=== PATIENT | female | born 1950 | race Caucasian/White ===

== ENCOUNTER → 2019-01-12 | Outpatient (CLI) | payer MEDICARE ==
[2019-01-12 15:23] LABS: HCT 42.9 % (34.0-46.0); MCH 30.4 pg (25.0-35.0); MCHC 32.7 g/dL (31.0-37.0); MCV 93.1 fL (80.0-100.0); Mean Platelet Volume 5.8; Platelet Count 263 k/uL (150-450); RBC 4.61 m/uL (3.80-5.40); RDW 12.8 % (11.5-15.5); WBC 6.7 k/uL (3.8-10.6)
[2019-01-12 15:34] LABS: Potassium 4.6 mmol/L (3.5-5.1)
== END | disposition home or self-care (01) ==
LOC: LABPAT 14:32
PROVIDERS: ATTEND Internal Medicine Interventional Cardiology
DX: Z01.812 Encounter for preprocedural laboratory examination (principal); I25.10 Atherosclerotic heart disease of native coronary artery without angina pectoris
CPT/HCPCS: 36415; 80051; 82565; 84520; 85027

== ENCOUNTER → 2019-01-14 | Day surgery (SDC) | payer MEDICARE ==
[2019-01-13 11:34] VITALS: BMI 39.8
[~2019-01-14] MED LIST: ADENOSINE 90 MG in SODIUM CHLORIDE 0.9% 60 ML IVP ONE; ALPRAZolam 0.25 MG TAB PO PRN; ALPRAZolam 0.5 MG TAB PO PRN; ASPIRIN 325 MG TAB PO STA; ASPIRIN 81 MG PO SCH; CARVEDILOL 12.5 MG TAB PO SCH; ESCITALOPRAM 10 MG TAB PO SCH; HEPARIN SODIUM 1,000 UN/ML (10ML VL) IV ONE; HEPARIN SODIUM 1,000 UN/ML (10ML VL) ONE; INSULIN DETEMIR (LEVEMIR) 100 UNIT/ML SYR SQ SCH; IOPAMIDOL-370 125ML BTL INJ ONE; LIDOCAINE 1% INJ 10MG/ML (20 ML MDV) ONE; LIDOCAINE 1% INJ 10MG/ML (20 ML MDV) SQ ONE; LOSARTAN 25 MG TAB PO SCH; NITROGLYCERIN 1000MCG/10ML SYRINGE INTRACORON ONE; NITROGLYCERIN SL TABS 0.4 MG TAB SUBLINGUAL PRN; PIOGLITAZONE 15 MG TAB PO SCH; ROSUVASTATIN CALCIUM 10 MG PO SCH; RX INFO: IV CONTRAST WAS GIVEN 1 EACH MISC MISCELLANE PRN; SODIUM CHLORIDE 0.9% 1,000 ML IV SCH; SODIUM CHLORIDE 0.9% 1,000 ML in EMPTY BAG 1 BAG IV ONE; VERAPAMIL 2.5 MG/ML 2 ML AMP ONE; VERAPAMIL SYRINGE (5 MG/10 ML) INTRAARTER ONE; fentaNYL (PF) 50 MCG/ML 2 ML AMP IV ONE; fentaNYL (PF) 50 MCG/ML 2 ML AMP ONE
[2019-01-14 10:30] LABS: Glucose,Whole Blood 140 mg/dL (75-99)
[2019-01-14 10:31] VITALS: RESP 18; TEMP 99.5
[2019-01-14 14:11] LABS: Glucose,Whole Blood 142 mg/dL (75-99)
--- NOTE | 2019-01-14 14:51 | CC ---
CARDIAC CATHETERIZATION REPORT Mrs. Richards is a 68-year-old female with known history of hypertension, hyperlipidemia, diabetes mellitus, and a history of coronary artery disease who presented with symptoms of progressive dyspnea and fatigue and back and chest discomfort reminding her of the symptoms she had at the time of her intervention. In view of that, recommendation made regarding cardiac catheterization. The procedures, risks, and complication were discussed with the patient who is in full understanding and agreement. PROCEDURE: Patient was brought to the cytogenetics laboratory manager in the fasting semi-sedated state after receiving fentanyl and Benadryl and achieving moderate conscious sedated state. Using Xylocaine anesthesia and Seldinger technique, a 6-[place] sheath was introduced in the right radial artery. Selective right and left coronary angiography performed using 5-[place]ican, 3.5 bend right and left Leonidas catheter. Multiple views of the coronary artery including hemiaxial views obtained. Following that, a 6-[place] FR4 guiding catheter introduced in the system and fractional flow reserve was calculated after advancing a Doppler flow wire across the lesion in the right coronary artery and having infusion of intravenous adenosine per protocol. Following that, a 5-[place] tight pigtail catheter was introduced into the left ventricle and pressures were calculated. Following that, catheter and sheath were removed. Hemostasis was obtained with deployment of a TR band. There was no immediate complication. Patient was returned to her room in stable condition. Of note, the patient had received intra-arterial verapamil as well as 5000 units of intravenous heparin. FINDINGS: 1. LEFT MAIN: This is a large-sized vessel, bifurcating into left circumflex, left anterior descending artery. Left main coronary artery has no evidence of high- grade stenosis. 2. LEFT ANTERIOR DESCENDING ARTERY: This is a large-sized vessel, reaching toward the apex with a wraparound apex segment giving rise to a large diagonal branch proximally. The left anterior descending artery stented segment is patent with no evidence of stenosis. 3. LEFT CIRCUMFLEX: This is a nondominant vessel giving rise to a large obtuse marginal branch. The left circumflex stented segment is patent with no evidence of significant restenosis. 4. RIGHT CORONARY ARTERY: This is a large dominant vessel, bifurcating distally into PDA and posterolateral segment and branches, calcified in mid segment. In the mid segment at the takeoff of the acute marginal branch, there is a tubular lesion of 50% to 60%. The rest of the vessel has no high-grade stenosis. 5. FRACTIONAL FLOW RESERVE: Fractional flow reserve of the right coronary was measured at 81% and IFR was above 90%. 6. LEFT VENTRICULAR END-DIASTOLIC PRESSURE: Left ventricular end-diastolic pressure was 16-20 mmHg. CONCLUSION: 1. Patent stent of the LAD and the left circumflex. 2. Moderate lesion in the mid right coronary artery with non-hemodynamic significant lesion. RECOMMENDATION: In view of finding anatomy, I recommend continue medical therapy with aggressive coronary risk modifications being initiated. Those findings and recommendation were discussed with the patient and her family and they are in full understanding and agreement. Duration of procedure is 31 minutes. MMODL / IJN: [id number] /
--- NOTE | 2019-01-14 14:54 | LTR ---
DATE OF SERVICE: 01/14/2019 RE: SusieJanki Dear Dr. Victoria: I had the pleasure to perform cardiac catheterization and fractional flow reserve measurement on Mrs Richards at [facility] on January 14, 2019 and a full copy of the procedure note will be forwarded to you. In brief, she was found to have patent stent of the LAD and to the left circumflex with borderline lesion in the right coronary artery that had non-hemodynamically significant fractional flow reserve. In view of that, I recommend to continue medical therapy with aggressive risk modification being initiated and thank you again for allowing me to participate in your patient's care. Please feel free to call for any questions. Sincerely yours, MD STEPHANIE IssaL / KATARZYNAN: [id number] /
[2019-01-14 18:13] VITALS: BP 124/68; PULSE 52
== END | disposition home or self-care (01) ==
LOC: CATHCVL 09:54
PROVIDERS: ATTEND Internal Medicine Interventional Cardiology
DX: I25.10 Atherosclerotic heart disease of native coronary artery without angina pectoris (principal); I10 Essential (primary) hypertension; E11.9 Type 2 diabetes mellitus without complications; E78.2 Mixed hyperlipidemia; F17.210 Nicotine dependence, cigarettes, uncomplicated; E66.9 Obesity, unspecified; Z95.5 Presence of coronary angioplasty implant and graft; Z79.82 Long term (current) use of aspirin; Z79.899 Other long term (current) drug therapy; Z79.02 Long term (current) use of antithrombotics/antiplatelets; Z79.84 Long term (current) use of oral hypoglycemic drugs; Z88.5 Allergy status to narcotic agent; Z88.8 Allergy status to other drugs, medicaments and biological substances; Z68.39 Body mass index [BMI] 39.0-39.9, adult; Z82.49 Family history of ischemic heart disease and other diseases of the circulatory system
CPT/HCPCS: 93571; 93458; C1887; J2001; J3010; J1644; J0153; Q9967

== ENCOUNTER → 2019-02-06 | Outpatient (CLI) | payer MEDICARE, BC ==
[2019-02-06 23:43] LABS: African American GFR (CKD) 45.3 (60.0-200.0); Anion Gap 8.4 mmol/L (4.00-12.00); Calcium 9.6 mg/dL (8.7-10.3); Carbon Dioxide 27.6 mmol/L (21.6-31.8); Non-African American GFR(CKD) 39.1 (60.0-200.0); Potassium 4.4 mmol/L (3.5-5.5)
== END | disposition home or self-care (01) ==
LOC: LABWHC1 16:05
PROVIDERS: ATTEND Internal Medicine Interventional Cardiology
DX: I25.10 Atherosclerotic heart disease of native coronary artery without angina pectoris (principal)
CPT/HCPCS: 36415; 80048

== ENCOUNTER → 2020-04-21 | Outpatient (CLI) | payer MEDICARE, BC ==
[2020-04-21 18:33] LABS: African American GFR (CKD) 38.2 (60.0-200.0); Anion Gap 8.7 mmol/L (4.00-12.00); Carbon Dioxide 25.3 mmol/L (21.6-31.8); Potassium 4.9 mmol/L (3.5-5.5)
== END | disposition home or self-care (01) ==
LOC: LABWHC1 10:21
PROVIDERS: ATTEND Internal Medicine Interventional Cardiology
DX: I10 Essential (primary) hypertension (principal)
CPT/HCPCS: 36415; 80051; 82565; 84520

== ENCOUNTER → 2020-11-17 | Outpatient (CLI) | payer MEDICARE, BC ==
--- NOTE | 2020-11-17 17:43 | CONS ---
CONSULTATION DATE OF SERVICE: 11/17/2020 This 70-year-old lady has been evaluated in Sleep Center for possible obstructive sleep apnea-hypopnea syndrome. HISTORY OF PRESENT ILLNESS/SLEEP-WAKE EVALUATION: The patient usually goes to bed around midnight and sleeps until 8 or 9 a.m. Sometimes she sleeps until 11 a.m. She denied any significant problems with falling asleep, although she has a TV set in the bedroom. She sleeps on the side and back positions with her , and according to him, she snores and has episodes of stopped breathing during sleep. She also has restless leg symptoms at night. She wakes up from sleep 2 times with nocturia. No history of hypnagogic hallucinations, sleep paralysis or cataplexy. [place] Sleepiness Scale is 6, which is in normal range, but the patient may take 1-2 naps during the day, which does indicate sleepiness. PAST MEDICAL HISTORY: Positive for hypertension, coronary artery disease, status post heart attack in 2007, episodes of irritability, lung sarcoidosis, diabetes mellitus. PAST SURGICAL HISTORY: Stent insertions to coronary arteries, thoracotomy for evaluation of lungs, and the sarcoidosis was found. No problems since that time. Thoracotomy was done in 1984. MEDICATIONS: 1. Levemir 40 units once a day. 2. Spironolactone 25 mg once a day. 3. Carvedilol 12.5 mg twice a day. 4. Rosuvastatin 10 mg once a day. 5. Lexapro 10 mg once a day. 6. Aspirin 81 mg once a day. 7. Losartan 50 mg once a day. 8. Actos 15 mg once a day. 9. Tramadol 50 mg as needed. 10.Farxiga 10 mg once a day. 11.Methocarbamol 400 mg on p.r.n. basis. SOCIAL HISTORY: Positive for smoking in the past for about 8 years; quit about 40 years ago. Alcohol consumption: Occasional wine. FAMILY HISTORY: Hypertension, heart problems. REVIEW OF SYSTEMS: No fevers. No double vision. No recent chest pain. No shortness of breath. No abdominal pain. No bleeding episodes. No blood in the urine. No seizure episodes. Awakenings from sleep, loud snoring, sleepiness during the day. PHYSICAL EXAMINATION: GENERAL: Pleasant lady without distress. VITAL SIGNS: BP 163/74, HR 59, RR 14, height 5 feet 4-1/2 inches, weight 221.6 pounds, body mass index 37.3, temperature 96.1, oxygen saturation at room air 96%. HEENT: PERRLEXY, EOMI, evaluation of oropharynx showed tongue protrudes midline. Extremely low position of soft palate; Mallampati IV. NECK: Supple, no JVD. Thyroid is not palpable. Neck measures 15 inches in circumference. LUNGS: Clear to percussion and to auscultation. Good air exchange. No wheezing or rhonchi. HEART: S1, S2 regular. No murmurs, gallops, or rubs. ABDOMEN: Obese. EXTREMITIES: No clubbing or cyanosis. DIESEL MECHANIC HELPER: Awake, alert, and oriented X3. Cranial nerves 2 to 7 intact. There is no fasciculation or atrophy. noted. No focal deficits observed. IMPRESSION: 1. Loud snoring, witnessed episodes of stopped breathing during sleep, extremely low position of soft palate, awakenings from sleep, sleepiness during the day; patient takes up to 2 naps a day; obstructive sleep apnea-hypopnea syndrome. 2. Obesity. BMI 37.3. 3. Hypertension. 4. Coronary artery disease, status post myocardial infarction in 2007, status post stent insertions. 5. Diabetes mellitus. 6. Irritability. 7. History of sarcoidosis of the lung, status post thoracotomy in 1984. No problems since that time. PLAN: 1. Polysomnography for evaluation of patient's breathing during sleep. 2. CPAP/BiPAP titration if sleep study confirms obstructive sleep apnea-hypopnea syndrome. 3. Preferable position during sleep on the side. 4. No driving if patient feels any sleepiness. 5. I will see patient for follow up visit to explain results of testing and following plan. Thank you very much for referring this patient for consultation. Sincerely, Lucas Singer MD, PhD, FAASM Diplomat of [employer] Sleep Medicine Board of [place] [employer] Needle Grader of [facility] [place] MMODL / KATARZYNAN: [id number] /
== END ==
LOC: SLEEP 11:21
PROVIDERS: ATTEND Internal Medicine
DX: G47.33 Obstructive sleep apnea (adult) (pediatric) (principal); E66.9 Obesity, unspecified; I10 Essential (primary) hypertension; I25.10 Atherosclerotic heart disease of native coronary artery without angina pectoris; I25.2 Old myocardial infarction; E11.9 Type 2 diabetes mellitus without complications; R45.4 Irritability and anger; Z68.37 Body mass index [BMI] 37.0-37.9, adult; Z79.899 Other long term (current) drug therapy; Z87.891 Personal history of nicotine dependence; Z95.5 Presence of coronary angioplasty implant and graft; Z87.09 Personal history of other diseases of the respiratory system; Z88.5 Allergy status to narcotic agent; Z88.8 Allergy status to other drugs, medicaments and biological substances
CPT/HCPCS: 99211

== ENCOUNTER → 2020-11-18 | Outpatient (CLI) | payer MEDICARE, BC ==
--- NOTE | 2020-11-18 09:05 | CT ---
EXAMINATION TYPE: CT lumbar spine wo con DATE OF EXAM: 11/18/2020 8:48 AM COMPARISON: None. HISTORY: Spinal stenosis CT DLP: 1196.10 mGycm Automated exposure control for dose reduction was used. Unenhanced CT of the lumbar spine was performed. Bone and soft tissue window settings are submitted as well as coronal and sagittal reconstructions. Osseous structures are demineralized. There are 5 lumbar-type vertebra. There is grade 1 anterolisthe sis L4 on L5 and grade 1 retrolisthesis L5 on S1. Small scattered Schmorl nodes for reference in the superior L2 endplate. Moderate to severe disc space narrowing with vacuum disc phenomenon and moderat e spurring at L5-S1 level is present. There is mild to moderate multilevel anterior and lateral spurr ing. Mild disc space narrowing with vacuum disc phenomenon T12-L1 through the L2-L3 levels is seen. Axial images at T12-L1 level show vacuum disc phenomenon otherwise are unremarkable. Similar finding noted at the L1-L2 level. Axial images at the L2-L3 level shows mild to moderate broad disc bulge effacing the anterior thecal sac and mild facet degenerative changes and ligamentum flavum hypertrophy effacing the posterior late ral thecal sac. Patent bilateral neural foramina. Some increased posterior epidural fat at this level is noted. All findings above contribute to spinal canal narrowing or stenosis axial image 28. Axial images at the L3-L4 level show moderate facet arthropathy and ligamentum flavum hypertrophy eff acing posterior lateral thecal sac and moderate broad-based posterior disc protrusion effacing the an terior thecal sac on axial image 37. There is mild bilateral anterior inferior neural foraminal narro wing right greater than left. Axial images at L4-L5 level show moderate to advanced facet arthropathy with spondylolisthesis and ps eudodisc herniation effacing the anterior and posterior lateral thecal sac on axial image 46, there i s qsna-vz-miniuxil bilateral anterior inferior neural foraminal narrowing. Axial images at the L5-S1 level show posterior right paracentral spur disc complex on axial image 55. Spinal canal is preserved and there is increased epidural fat at this level. There is bqelskas-nn-vs onel bilateral neural foraminal narrowing due to foraminal spurring. Qvaw-cq-hgmxwmhi calcified plaque of the infrarenal abdominal aorta is present. There is asymmetric posterior left sacral muscular atrophy for reference coronal image 47. IMPRESSION: Demineralization with lower lumbar spine spondylolisthesis. Multilevel degenerative mack ges as detailed above with most prominent spinal canal effacement or stenosis L2-L3 through the L4-L5 levels as detailed above.
== END | disposition home or self-care (01) ==
LOC: RADCTMAIN 08:25
PROVIDERS: ATTEND Family Medicine
DX: M48.061 Spinal stenosis, lumbar region without neurogenic claudication (principal); M51.26 Other intervertebral disc displacement, lumbar region; M43.16 Spondylolisthesis, lumbar region; M47.816 Spondylosis without myelopathy or radiculopathy, lumbar region; M99.73 Connective tissue and disc stenosis of intervertebral foramina of lumbar region
CPT/HCPCS: 72131

== ENCOUNTER → 2021-01-03 | Outpatient (CLI) | payer MEDICARE, BC ==
--- NOTE | 2021-01-05 08:57 | MM ---
Reason for exam: screening (asymptomatic). Last mammogram was performed 3 years ago. History: Patient is postmenopausal. Physical Findings: A clinical breast exam by your physician is recommended on an annual basis and results should be correlated with mammographic findings. MG Screening Mammo w CAD Bilateral CC and MLO view(s) were taken. Prior study comparison: December 26, 2017, mammogram, performed at [facility]. April 23, 2014, mammogram, performed at [facility]. There are scattered fibroglandular densities. No significant changes when compared with prior studies. ASSESSMENT: Benign, BI-RAD 2 RECOMMENDATION: Routine screening mammogram of both breasts in 1 year.
== END | disposition home or self-care (01) ==
LOC: RADMAMWWP 08:34
PROVIDERS: ATTEND Family Medicine
DX: Z12.31 Encounter for screening mammogram for malignant neoplasm of breast (principal); Z78.0 Asymptomatic menopausal state
CPT/HCPCS: 77067

== ENCOUNTER → 2021-03-16 | Outpatient (CLI) | payer MEDICARE, BC ==
--- NOTE | 2021-03-16 14:41 | SFUN ---
SLEEP CENTER FOLLOW UP NOTE DATE OF SERVICE: 03/16/2021 70-year-old lady has been followed in Sleep Center for treatment of obstructive sleep apnea-hypopnea syndrome. Today is the first visit on CPAP treatment. Recently, the patient had polysomnogram and CPAP titration and I explained to the patient results of all sleep studies in detail. With CPAP, she feels much better. She sleeps better and she feels better during the day. [place] Sleepiness Scale today is 9. I checked her CPAP unit, usage is 100% of nights for more than 4 hours, average 7 hours 46 minutes. Range of the pressure is 6-15 with average pressure 10.5. Leak is 21.5 L/minute 95%, which is borderline. Apnea-hypopnea index is 2.4, which is in normal range. CURRENT MEDICATIONS: Levemir 40 units once a day, spironolactone 25 mg once a day, carvedilol 12.5 mg twice a day, Rosuvastatin 10 mg once a day, Lexapro 10 mg once a day, aspirin 81 mg once a day, losartan 50 mg once a day. Actos 15 mg once a day, tramadol 50 mg as needed, Farxiga 10 mg once a day. Methocarbamol 400 mg on p.r.n. basis. PHYSICAL EXAMINATION: GENERAL: Patient in no distress. BP 146/68, HR 81, RR 15, weight 230.4 pounds, temperature 96.4, oxygen saturation at room air 94%. Height 5 feet 4-1/2 inches. Extremely low position of soft palate, Mallampati 4. NECK: Supple, no JVD. Thyroid is not palpable. LUNGS: Clear to percussion and to auscultation. Good air exchange. No wheezing or rhonchi. HEART: S1, S2 regular. No murmurs, gallops, or rubs. ABDOMEN: Soft and nontender. Bowel sounds are present. No organomegaly appreciated. EXTREMITIES: No clubbing or cyanosis. ETHNOARCHAEOLOGIST: Awake, alert, and oriented X3. Cranial nerves 2 to 7 intact. There is no fasciculation or atrophy. noted. No focal deficits observed. IMPRESSION: 1. Moderate close to severe obstructive sleep apnea-hypopnea syndrome apnea-hypopnea index 27.4 with oxygen desaturation to 82.9%. The patient demonstrated great compliance with treatment. Normal respiration on CPAP, benefitting from treatment. 2. Obesity. 3. Hypertension. 4. Coronary artery disease, status post heart attack in 2007, status post stent insertion. 5. Diabetes mellitus. 6. History of sarcoidosis of the lung status post total thoracotomy in 1984. 7. History of episodes of irritability. PLAN: 1. Patient will continue to use PAP equipment every night for the whole night. 2. Sleep hygiene with regular time in bed for at least 7-1/2 to 8 hours. 3. Precautions related to driving. No driving if feeling sleepiness. 4. I will maintain all necessary prescription for PAP supplies including mask, tube, filters. 5. Watching weight. 6. Follow-up visit in 6 months or earlier if patient has any problems. Thank you very much for allowing me to participate in the management of your patient. Sincerely, Lucas Singer MD, PhD, FAASM Diplomat of [place] [employer] Sleep Medicine Board of [place] [employer] Cad Designer of [facility] [place] MMODL / KATARZYNAN: [id number] /
== END ==
LOC: SLEEP 11:24
PROVIDERS: ATTEND Internal Medicine
DX: G47.33 Obstructive sleep apnea (adult) (pediatric) (principal); E66.9 Obesity, unspecified; I10 Essential (primary) hypertension; I25.10 Atherosclerotic heart disease of native coronary artery without angina pectoris; I25.2 Old myocardial infarction; E11.9 Type 2 diabetes mellitus without complications; Z86.2 Personal history of diseases of the blood and blood-forming organs and certain disorders involving the immune mechanism; Z95.5 Presence of coronary angioplasty implant and graft; Z88.5 Allergy status to narcotic agent; Z88.8 Allergy status to other drugs, medicaments and biological substances; Z87.891 Personal history of nicotine dependence

== ENCOUNTER 2021-08-23 16:59 | Emergency (ER) | payer MEDICARE, BC ==
[2021-08-23 17:43] VITALS: TEMP 98.3
--- NOTE | 2021-08-23 18:08 | ED ---
General Adult HPI - General Chief complaint: Upper Respiratory Infection Stated complaint: COVID+/Infusion Time Seen by Provider: 08/23/21 18:08 Source: patient, RN notes reviewed Mode of arrival: ambulatory Limitations: no limitations - History of Present Illness Initial comments: Patient presents after testing positive for COVID-19. Patient requesting monoclonal antibodies.She complaining of a cough, runny nose, body aches, headache, symptoms started on Saturday. Tested positive for COVID-19 today No headache, no fever or chills, no changes in vision or hearing, no sore throat or difficulty with speech, no neck pain, no chest pain or shortness of breath, no abdominal pain, no nausea or vomiting, no changes in urination or bowel movements, no numbness or tingling, no extremity pain, no skin rashes or lesions. - Related Data Home Medications Medication Instructions Recorded Confirmed Aspirin 81 mg PO DAILY 08/10/15 01/14/19 Carvedilol [Coreg] 12.5 mg PO BID 08/10/15 01/14/19 Escitalopram Oxalate [Lexapro] 10 mg PO HS 08/10/15 01/14/19 Losartan [Cozaar] 25 mg PO DAILY 08/10/15 01/14/19 Rosuvastatin Calcium [Crestor] 10 mg PO HS 08/10/15 01/14/19 Insulin Detemir (Levemir) [Levemir] 40 unit SQ HS 01/13/19 01/14/19 Pioglitazone [Actos] 15 mg PO DAILY 01/13/19 01/14/19 Previous Rx's Medication Instructions Recorded Nitroglycerin Sl Tabs [Nitrostat] 0.4 mg SUBLINGUAL Q5M PRN #25 tab 08/11/15 Albuterol Inhaler [Ventolin Hfa 2 puff INHALATION Q4HR PRN #1 each 08/23/21 Inhaler] Benzonatate [Tessalon Perles] 200 mg PO TID PRN #30 capsule 08/23/21 Allergies Allergy/AdvReac Type Severity Reaction Status Date / Time hydromorphone HCl Allergy Itching Verified 08/23/21 17:43 [From Dilaudid] prochlorperazine maleate Allergy Confusion Verified 08/23/21 17:43 [From Compazine] atorvastatin calcium AdvReac Unknown Verified 08/23/21 17:43 [From Lipitor] prochlorperazine AdvReac Confusion Verified 08/23/21 17:43 [From Compazine] prochlorperazine edisylate AdvReac Confusion Verified 08/23/21 17:43 [From Compazine] Review of Systems ROS Statement: Those systems with pertinent positive or pertinent negative responses have been documented in the HPI. ROS Other: All systems not noted in ROS Statement are negative. Past Medical History Past Medical History: Coronary Artery Disease (CAD), Diabetes Mellitus, Hearing Disorder / Deafness, Hyperlipidemia, Hypertension, Myocardial Infarction ([place]), Renal Disease Last Myocardial Infarction Date:: 2007 History of Any Multi-Drug Resistant Organisms: None Reported Past Surgical History: Heart Catheterization With Stent Additional Past Surgical History / Comment(s): Stents in 2007. Clean cath 2015. Ear surgery- stapedectomy Past Anesthesia/Blood Transfusion Reactions: No Reported Reaction Date of Last Stent Placement:: 2007 Past Psychological History: No Psychological Hx Reported Smoking Status: Former smoker Past Alcohol Use History: Occasional Past Drug Use History: None Reported - Past Family History Mother Family Medical History: Congestive Heart Failure (CHF), Coronary Artery Disease (CAD), Diabetes Mellitus, Hypertension Father Additional Family Medical History / Comment(s): from cancer and liver cirrhosis Sister(s) Family Medical History: Cancer, Coronary Artery Disease (CAD), Diabetes Mellitus, Rheumatoid Arthritis (RA) Additional Family Medical History / Comment(s): Leukemia. General Exam - General Exam Comments Initial Comments: Patient in no acute distress. Does not appear to be ill or toxic. Limitations: no limitations General appearance: alert, in no apparent distress Head exam: Present: atraumatic, normocephalic, normal inspection Eye exam: Present: normal appearance, PERRL, EOMI. Absent: scleral icterus, conjunctival injection, periorbital swelling ENT exam: Present: normal exam, mucous membranes moist Neck exam: Present: normal inspection. Absent: tenderness, meningismus, lymphadenopathy Respiratory exam: Present: normal lung sounds bilaterally. Absent: respiratory distress, wheezes, rales, rhonchi, stridor Cardiovascular Exam: Present: regular rate, normal rhythm, normal heart sounds. Absent: systolic murmur, diastolic murmur, rubs, gallop, clicks GI/Abdominal exam: Present: soft, normal bowel sounds. Absent: distended, tenderness, guarding, rebound, rigid Extremities exam: Present: normal inspection, full ROM, normal capillary refill. Absent: tenderness, pedal edema, joint swelling, calf tenderness Back exam: Present: normal inspection Neurological exam: Present: alert, oriented X3, CN II-XII intact Psychiatric exam: Present: normal affect, normal mood Skin exam: Present: warm, dry, intact, normal color. Absent: rash Course Vital Signs 08/23/21 08/23/21 17:40 18:44 Temperature 98.3 F Pulse Rate 71 73 Respiratory 16 18 Rate Blood Pressure 121/68 119/74 O2 Sat by Pulse 96 95 Oximetry - Reevaluation(s) Reevaluation #1: 08/23/21 19:09 Patient unchanged at recheck. Patient in no respiratory distress. Pulse oximetry is 96% on room air. Medical Decision Making - Medical Decision Making Patient presents with symptoms consistent with mild COVID-19 infection. When he nose, stuffy nose, body aches, mild headache, dry cough. Noted the patient was immunized against COVID-19 and received 1 booster. She denies any fever. Patient's chest x-ray shows evidence of mild inflammation as read by me. However, going to the antibiotics as the patient is diabetic. We'll have the patient follow-up closely with her primary care physician. She can return here if any symptoms worsen. Prescribed albuterol and Tessalon. Patient received a monoclonal antibody here. Patient was told to return to the ER for any signs or symptoms worsen. Told to return immediately if any other problems arise. All questions answered. Treatment plan discussed. Patient in agreement Every effort has been made to ensure accuracy of this dictation. However, due to the limitations of electronic medical records and dictation devices, errors in charting still occur. Prototype Engineer, Dr. Land Disposition Clinical Impression: COVID-19 Disposition: HOME SELF-CARE Condition: Good Instructions (If sedation given, give patient instructions): COVID-19 (Coronavirus Disease 2019) (ED) Additional Instructions: SELF QUARANTINE DISCHARGE: As you are at risk for symptoms due to coronavirus, please stay home and stay away from others as much as possible. Please maintain social distance of 6 feet if possible. You should not return to work until at least 3 days (72 hours) have passed since recovery of symptoms. This defined as resolution of fever without the use of fever reducing medicines and improvement in respiratory symptoms (e.g,, cough, shortness of breath) Isolation can end at least 5 days after symptom onset and after fever ends for 24 hours (without the use of fever-reducing medication) and symptoms are improving, if these people can continue to properly wear a well-fitted mask around others for 5 more days after the 5-day isolation period. If you're still having symptoms at the end of 5 day period, isolate for an additional 5 days. More information about what to do if you are sick can be found on the CDC website at https://www.cdc.gov/coronavirus/2019-ncov/ga-nkw-auy-sick/ufoka-umak-wrmv.html Expect the symptoms to last for 7-14 days from onset. Use acetaminophen (Tylenol) as needed for discomfort. You can take a maximum of 1 gram every 6 hours for discomfort, with your total dose in 24 hours not exceeding 4 grams. Be sure to maintain hydration. Drink continuous water and/or items high in vitamin C, such as orange juice and/or lemonade. Unless you have high blood pressure, you may consider Sudafed (which is bgfr-iie-wopabsp) for nasal congestion. I would suggest that a short acting Sudafed rather than the 24 hour Sudafed. For a cough you may take Mucinex or Robitussin. Also consider the use of Vicks Vapor Rub or your chest when you sleep. Use a humidifier that is cleaned frequently, in the bedroom at night. For Nausea /Vomiting/Diarrhea associated with your Illness: o Small frequent sips of room temperature liquids. o Diet: [place] Foods - If you are still experiencing discomfort and/or nausea please slowly advancing your diet using the BRAT Diet = bananas, rice, apples/apple sauce, toast. o With diarrhea avoid any dairy for 48 hours after symptoms resolved. o Continue with activity as tolerated. If your symptoms do get worse and you believe that the upper respiratory infection has developed into something else, such as pneumonia or severe dehydration, please return to the emergency department or follow-up with your primary care. But expect to be symptomatic for the days as indicated above Prescriptions: Benzonatate [Tessalon Perles] 200 mg PO TID PRN #30 capsule PRN Reason: Cough Albuterol Inhaler [Ventolin Hfa Inhaler] 2 puff INHALATION Q4HR PRN #1 each PRN Reason: Wheezing Is patient prescribed a controlled substance at d/c from ED?: No Referrals: Darin Garay MD [Primary Care Provider] - 08/30/21 Time of Disposition: 19:09
[2021-08-23] MEDS ORDERED: BEBTELOVIMAB (EUA) 175 MG/2 ML VIAL IV ONE (18:30)
[2021-08-23 18:45] VITALS: RESP 18
[2021-08-23 19:27] VITALS: BP 132/81; PULSE 62
--- NOTE | 2021-08-23 20:13 | XR ---
EXAMINATION TYPE: XR chest 1V portable DATE OF EXAM: 08/23/2021 COMPARISON: None INDICATION: Cough congestion covid TECHNIQUE: Single frontal view of the chest is obtained. FINDINGS: The heart size is normal. The pulmonary vasculature is normal. The lungs are clear. IMPRESSION: 1. No acute pulmonary process. Follow-up can be performed as clinically indicated.
== END 2021-08-23 19:45 | disposition home or self-care (01) ==
LOC: EC 16:59
DX: U07.1 COVID-19 (principal); I25.10 Atherosclerotic heart disease of native coronary artery without angina pectoris; Z79.1 Long term (current) use of non-steroidal anti-inflammatories (NSAID); Z87.891 Personal history of nicotine dependence; Z88.5 Allergy status to narcotic agent; Z88.9 Allergy status to unspecified drugs, medicaments and biological substances; Z88.8 Allergy status to other drugs, medicaments and biological substances
CPT/HCPCS: 71045; 99284; Q0222

== ENCOUNTER → 2022-07-12 | Outpatient (CLI) | payer MEDICARE, BC ==
--- NOTE | 2022-07-12 11:41 | P.PN ---
Subjective DATE: 07/12/2022 FOLLOW UP VISIT. Patient with obstructive sleep apnea hypopnea syndrome return to sleep center for follow-up visit. Information from previous visit have been reviewed. Patient is using PAP equipment every night for the whole night, getting PAP supplies in time. The patient does not have significant problems with the mask, PAP unit and humidification. [place] sleepiness scale is 4, which is normal. I checked information from PAP unit. PAP unit pressure 7-17, average 13.3 cm H2O. Usage is 93% and 80 % for more then 4 hours, average 6.5 hours per night. Leak is 27.6 l/m, which is in acceptable range. Apnea Hypopnea Index is 1.9, which is normal. MEDICATIONS:1. Carvedilol 12.5 mg twice a day 2. Rosuvastatin 10 mg once a day 3. Spironolactone 25 mg once a day 4. Losartan 50 mg once a day 5. Escitalopram 10 mg once a day 6. Farxiga 10 mg once a day 7. Insulin During physical exam: GENERAL: A pleasant patient without any distress. VITAL SIGNS: BP 118/75, HR 76, RR 12, weight 203.2, temperature 97.4, oxygen saturation at room air 95 % . HEENT: PERRLA, EOMI.low position of soft palate, Mallapati 4 . NECK: Supple. No JVD. LUNGS: Clear to percussion and to auscultation. Good air exchange. No wheezing or rhonchi. HEART: S1, S2 regular. ABDOMEN: Soft and nontender.[] EXTREMITIES: No clubbing or cyanosis. PROPERTY INSURANCE INSPECTOR: Awake, alert, and oriented x3. No focal deficit. Impressions: 1. Obstructive sleep apnea-hypopnea syndrome. Patient demonstrated great compliance with treatment, benefiting from treatment. 2. Obesity, BMI 35.1, patient lost about 20 pounds since previous visit. 3. Hypertension. 4. Coronary artery disease status post [place] and stent insertion. 5. Diabetes mellitus. 6. History of sarcoidosis. Plan: 1. Continue using PAP equipment every night for the whole night. 2. To change air filter at least 1-2 times per month. 3. PAP unit should stay lower then position of the head. 4. Advised patient to remove all remaining water from humidifier canister daily and make it dry after each usage. Refill canister with fresh distilled water before each usage. 5. Sleep hygiene with regular time in bed for at least 8 hours. 6. Precautions related to driving. No driving if feel any sleepiness. 7. I will maintain prescription for PAP supplies including mask, tube, filters. 8. Watching and continue losing weight. 9. Follow up visit in 6 months or earlier if patient has any problems. Thank you very much for allowing me to participate in the management of your patient. Lucas Singer MD, PhD, FAASM. Diplomat of [place] [employer], Sleep Medicine Board by [place] [employer] Collection Card Clerk of [facility] [place]
== END ==
LOC: SLEEP 11:07
PROVIDERS: ATTEND Internal Medicine
DX: G47.33 Obstructive sleep apnea (adult) (pediatric) (principal); E66.9 Obesity, unspecified; Z68.35 Body mass index [BMI] 35.0-35.9, adult; I10 Essential (primary) hypertension; I25.10 Atherosclerotic heart disease of native coronary artery without angina pectoris; E11.9 Type 2 diabetes mellitus without complications; Z98.890 Other specified postprocedural states; Z99.89 Dependence on other enabling machines and devices; Z79.4 Long term (current) use of insulin; Z88.5 Allergy status to narcotic agent; Z88.8 Allergy status to other drugs, medicaments and biological substances; Z87.891 Personal history of nicotine dependence
CPT/HCPCS: 99212

== ENCOUNTER → 2022-08-29 | Outpatient (CLI) | payer MEDICARE, BC ==
--- NOTE | 2022-08-30 08:23 | MM ---
Reason for Exam: Screening (asymptomatic). Last mammogram was performed 1 year(s) and 8 month(s) ago. Patient History: Menarche at age 15. First Full-Term at age 22. Postmenopausal. Risk Values: Nidhi 5 year model risk: 1.5%. NCI Lifetime model risk: 4.5%. Prior Study Comparison: 04/23/2014 Screening Mammogram, [facility]. 12/26/2017 Screening Mammogram, [facility]. 01/03/2021 Bilateral Screening Mammogram, [facility]. Tissue Density: The breast tissue is almost entirely fat. Findings: Analyzed By CAD. There is no suspicious group of microcalcifications or new suspicious mass in either breast. Overall Assessment: Negative, BI-RAD 1 Management: Screening Mammogram of both breasts in [address] [facility] will attempt to contact patient to return for supplemental views and ultrasound if indicated. Patient should continue monthly self-breast exams. A clinical breast exam by your physician is recommended on an annual basis. This exam should not preclude additional follow-up of suspicious palpable abnormalities. Note on Nidhi scores and lifetime risk: 1. A Nidhi score greater than 3% is considered moderate risk. If this is the case, consider specialist referral to assess eligibility for a risk reducing agent. 2. If overall lifetime risk for the development of breast cancer is 20% or higher, the patient may qualify for future screening with alternating mammogram and breast MRI. Electronically signed and approved by: Russ Parada DO
== END | disposition home or self-care (01) ==
LOC: RADMAMWWP 08:21
PROVIDERS: ATTEND Family Medicine
DX: Z12.31 Encounter for screening mammogram for malignant neoplasm of breast (principal); Z78.0 Asymptomatic menopausal state
CPT/HCPCS: 77063; 77067

== ENCOUNTER → 2023-01-31 | Outpatient (CLI) | payer MEDICARE, BC ==
--- NOTE | 2023-01-31 11:48 | P.PN ---
Subjective DATE: 01/01/2023 FOLLOW UP VISIT. Patient with obstructive sleep apnea hypopnea syndrome return to sleep center for follow-up visit. Information from previous visit have been reviewed. Patient is using PAP equipment every night for the whole night, getting PAP supplies in time. The patient does not have significant problems with the mask, PAP unit and humidification. [place] sleepiness scale is 6, which is normal. I checked information from PAP unit and explain it to the patient in details. PAP unit pressure 7-17, average 11.7 cm H2O. Usage is 97 % for more then 4 hours, average 7.2 hours per night. Leak is slightly increased to 30.0 l/m. Apnea Hypopnea Index is 1.0, which is normal. MEDICATIONS:1. Carvedilol 12.5 mg twice a day 2. Aspirin 81 mg once a day 3. Rosuvastatin 4. Spironolactone 25 mg once a day 5. Lexapro 10 mg once a day 6. Losartan 25 mg once a day 7. Farxiga 10 mg once a day 8. Ozempic During physical exam: GENERAL: A pleasant patient without any distress. VITAL SIGNS: BP 116/72, HR 80, RR 16 , weight 194, temperature 97.8, oxygen saturation at room air 95 % . HEENT: PERRLA, EOMI.low position of soft palate, Mallapati 4 . NECK: Supple. No JVD. LUNGS: Clear to percussion and to auscultation. Good air exchange. No wheezing or rhonchi. HEART: S1, S2 regular. ABDOMEN: Soft and nontender.[] EXTREMITIES: No clubbing or cyanosis. BASKET MACHINE OPERATOR: Awake, alert, and oriented x3. No focal deficit. Impressions: 1. Obstructive sleep apnea-hypopnea syndrome. Patient demonstrated great compliance with treatment, benefiting from treatment. 2. Mild obesity, patient lost 9 pounds compared with previous visit, BMI 33.2. 3. Coronary artery disease, status post [place] and stent insertion. 4. Hypertension. 5. Diabetes mellitus. 6. History of sarcoidosis. Plan: 1. Continue using PAP equipment every night for the whole night. 2. To change air filter at least 1-2 times per month. 3. PAP unit should stay lower then position of the head. 4. Advised patient to remove all remaining water from humidifier canister daily and make it dry after each usage. Refill canister with fresh distilled water before each usage. 5. Sleep hygiene with regular time in bed for at least 8 hours. 6. Precautions related to driving. No driving if feel any sleepiness. 7. I will maintain prescription for PAP supplies including mask, tube, filters. 8. Follow up visit in 6 months or earlier if patient has any problems. 9. Watching and continue losing weight. Thank you very much for allowing me to participate in the management of your patient. Lucas Singer MD, PhD, FAASM. Diplomat of [place] [employer], Sleep Medicine Board by [place] [employer] Outpatient Coding Specialist of [facility] [place]
== END ==
LOC: 3 N SLEEP 10:37
PROVIDERS: ATTEND Internal Medicine
DX: G47.33 Obstructive sleep apnea (adult) (pediatric) (principal); I25.10 Atherosclerotic heart disease of native coronary artery without angina pectoris; E11.9 Type 2 diabetes mellitus without complications; I10 Essential (primary) hypertension; I25.2 Old myocardial infarction; E66.9 Obesity, unspecified; D86.9 Sarcoidosis, unspecified; Z68.33 Body mass index [BMI] 33.0-33.9, adult; Z99.89 Dependence on other enabling machines and devices; Z88.5 Allergy status to narcotic agent; Z88.9 Allergy status to unspecified drugs, medicaments and biological substances; Z88.8 Allergy status to other drugs, medicaments and biological substances; Z79.4 Long term (current) use of insulin; Z79.82 Long term (current) use of aspirin; Z87.891 Personal history of nicotine dependence
CPT/HCPCS: 99212

== ENCOUNTER → 2023-09-05 | Outpatient (CLI) | payer MEDICARE, BC ==
[2023-09-05 11:21] VITALS: BP 127/78; PULSE 67; RESP 18; TEMP 98.3
--- NOTE | 2023-09-05 12:13 | P.PROGSL ---
Subjective DATE: 09/05/2023 FOLLOW UP VISIT. Patient with obstructive sleep apnea hypopnea syndrome return to sleep center for follow-up visit. Information from previous visit have been reviewed. Patient is using PAP equipment every night for the whole night, getting PAP supplies in time. The patient does not have significant problems with the mask, PAP unit and humidification. [place] sleepiness scale is 4. I checked information from PAP unit. PAP unit pressure 7-17, average 11.4 cm H2O. Usage is 97% for more then 4 hours, average 6.25 hours per night. Leak is increased to 34.2 l/m, which is in acceptable range. Apnea Hypopnea Index is 1.1, which is normal. MEDICATIONS: Please see below During physical exam: GENERAL: A pleasant patient without any distress. VITAL SIGNS: Please see below, weight 193.2 pounds, BMI 33.1. HEENT: PERRLA, EOMI.low position of soft palate, Mallapati 4 . NECK: Supple. No JVD. LUNGS: Clear to percussion and to auscultation. Good air exchange. No wheezing or rhonchi. HEART: S1, S2 regular. ABDOMEN: Soft and nontender.[] EXTREMITIES: No clubbing or cyanosis. INDEPENDENT LIVING SPECIALIST: Awake, alert, and oriented x3. No focal deficit. Impressions: 1. Obstructive sleep apnea-hypopnea syndrome. Patient demonstrated great compliance with treatment, benefiting from treatment. 2. Mild obesity, BMI 33.1. 3. Coronary artery disease, status post [place] and stent insertion. 4. Hypertension. 5. Diabetes mellitus. 6. History of sarcoidosis. Plan: 1. Continue using PAP equipment every night for the whole night. 2. To change air filter at least 1-2 times per month. 3. PAP unit should stay lower then position of the head. 4. Advised patient to remove all remaining water from humidifier canister daily and make it dry after each usage. Refill canister with fresh distilled water before each usage. 5. Sleep hygiene with regular time in bed for at least 8 hours. 6. Precautions related to driving. No driving if feel any sleepiness. 7. I will maintain prescription for PAP supplies including mask, tube, filters. 8. Watching and losing weight. 9. Follow up visit in 6 months or earlier if patient has any problems. Thank you very much for allowing me to participate in the management of your patient. Lucas Singer MD, PhD, FAASM. Diplomat of [place] [employer], Sleep Medicine Board by [place] [employer] Chocolatier of [facility] [place] Objective - Vital Signs Vital Signs: Vital Signs Temp 98.3 F 09/05/23 11:20 Pulse 67 09/05/23 11:20 Resp 18 09/05/23 11:20 BP 127/78 09/05/23 11:20 Pulse Ox 92 L 09/05/23 11:20 FiO2 Home Medications: Home Medications Medication Instructions Recorded Confirmed Type Aspirin 81 mg PO DAILY 08/10/15 09/05/23 History Carvedilol [Coreg] 12.5 mg PO BID 08/10/15 09/05/23 History Escitalopram Oxalate [Lexapro] 10 mg PO HS 08/10/15 09/05/23 History Losartan [Cozaar] 50 mg PO HS 08/10/15 09/05/23 History Rosuvastatin Calcium [Crestor] 10 mg PO HS 08/10/15 09/05/23 History Nitroglycerin Sl Tabs [Nitrostat] 0.4 mg SUBLINGUAL Q5M PRN #25 tab 08/11/15 10/16/21 Rx Insulin Detemir (Levemir) [Levemir] 40 unit SQ HS 01/13/19 10/18/21 History Pioglitazone [Actos] 15 mg PO DAILY 01/13/19 10/16/21 History Dapagliflozin Propanediol [Farxiga] 1 tab PO DAILY 10/16/21 09/05/23 History Gabapentin 300 mg PO BID 10/16/21 10/16/21 History Spironolactone 25 mg PO DAILY 10/16/21 09/05/23 History Unk Daily Vitamin 1 tab PO DAILY 10/16/21 10/16/21 History Unk Tumeric 1 tab PO DAILY 10/16/21 10/16/21 History Acetaminophen [Tylenol Extra 500 mg PO DAILY PRN 09/05/23 09/05/23 History Strength] Multivit-Min/Iron/Folic/Lutein 1 each PO DAILY 09/05/23 09/05/23 History [Centrum Silver Women Tablet] Semaglutide [Ozempic] 2 mg SQ WEEKLY 09/05/23 09/05/23 History Zinc Gluconate [Zinc] 50 mg PO DAILY 09/05/23 09/05/23 History
== END ==
LOC: 3 N SLEEP 10:50
PROVIDERS: ATTEND Internal Medicine
DX: G47.33 Obstructive sleep apnea (adult) (pediatric) (principal); I25.10 Atherosclerotic heart disease of native coronary artery without angina pectoris; E66.9 Obesity, unspecified; I10 Essential (primary) hypertension; I25.2 Old myocardial infarction; E11.9 Type 2 diabetes mellitus without complications; Z68.33 Body mass index [BMI] 33.0-33.9, adult; Z95.5 Presence of coronary angioplasty implant and graft; Z86.79 Personal history of other diseases of the circulatory system; Z99.89 Dependence on other enabling machines and devices; Z87.09 Personal history of other diseases of the respiratory system; Z79.899 Other long term (current) drug therapy; Z79.85 Long-term (current) use of injectable non-insulin antidiabetic drugs; Z79.4 Long term (current) use of insulin; Z88.5 Allergy status to narcotic agent; Z88.8 Allergy status to other drugs, medicaments and biological substances; Z87.891 Personal history of nicotine dependence
CPT/HCPCS: 99212

== ENCOUNTER → 2024-05-07 | Outpatient (CLI) | payer MEDICARE, BC ==
[2024-05-07 10:55] VITALS: BP 116/76; PULSE 80; RESP 16; TEMP 97.8
--- NOTE | 2024-05-07 11:11 | P.PROGSL ---
Subjective DATE: [] FOLLOW UP VISIT. Patient with obstructive sleep apnea hypopnea syndrome return to sleep center for follow-up visit. Information from previous visit have been reviewed. Patient is using PAP equipment every night for the whole night, getting PAP supplies in time. The patient does not have significant problems with the mask, PAP unit and humidification. [place] sleepiness scale is 4, which is normal. I checked information from PAP unit. PAP unit pressure 7-17, average 11.4 cm H2O. Usage is 90% for more then 4 hours, average 6.3 hours per night. Leak is 31 l/m, which is in acceptable range. Apnea Hypopnea Index is 3.3 during last night and 1.5 for extended period of time, which is normal. MEDICATIONS have been reviewed, please see below. During physical exam: GENERAL: A pleasant patient without any distress. VITAL SIGNS: Please see below, weight is 190 lbs. HEENT: PERRLA, EOMI.low position of soft palate, Mallapati 4 . NECK: Supple. No JVD. LUNGS: Clear to percussion and to auscultation. Good air exchange. No wheezing or rhonchi. HEART: S1, S2 regular. ABDOMEN: Soft and nontender.[] EXTREMITIES: No clubbing or cyanosis. OPERATIONS AND MAINTENANCE MANAGER: Awake, alert, and oriented x3. No focal deficit. Impressions: 1. Obstructive sleep apnea-hypopnea syndrome. Patient demonstrated great compliance with treatment, benefiting from treatment. 2. Mild obesity, BMI 33.1, patient lost 3 pounds comparing with previous visit. 3., Status post [place] and stent insertion. 4. Hypertension. 5. Diabetes mellitus. 6. Sarcoidosis. Plan: 1. Continue using PAP equipment every night for the whole night. 2. Sleep hygiene with regular time in bed for at least 7.5-8 hours 3. PAP unit should stay lower then position of the head. 4. Advised patient to remove all remaining water from humidifier canister daily and make it dry after each usage. Refill canister with fresh distilled water before each usage. 5. Watching and continue losing weight. 6. Precautions related to driving. No driving if feel any sleepiness. 7. I will maintain prescription for PAP supplies including mask, tube, filters. 8. Follow up visit in 8 months or earlier if patient has any problems. Thank you very much for allowing me to participate in the management of your patient. Lucas Singer MD, PhD, FAASM. Diplomat of [place] [employer] Sleep Medicine, Sleep Medicine Board by [place] [employer] Medicine Channeler Outsole of [facility] [place] Objective - Vital Signs Vital Signs: Vital Signs Temp 97.8 F 05/07/24 10:54 Pulse 80 05/07/24 10:54 Resp 16 05/07/24 10:54 BP 116/76 05/07/24 10:54 Pulse Ox 95 05/07/24 10:54 FiO2 Intake & Output 05/06/24 05/07/24 05/07/24 18:59 06:59 18:59 Weight 86.183 kg Home Medications: Home Medications Medication Instructions Recorded Confirmed Type Aspirin 81 mg PO DAILY 08/10/15 09/05/23 History Carvedilol [Coreg] 12.5 mg PO BID 08/10/15 09/05/23 History Escitalopram Oxalate [Lexapro] 10 mg PO HS 08/10/15 09/05/23 History Losartan [Cozaar] 50 mg PO HS 08/10/15 09/05/23 History Rosuvastatin Calcium [Crestor] 10 mg PO HS 08/10/15 09/05/23 History Nitroglycerin Sl Tabs [Nitrostat] 0.4 mg SUBLINGUAL Q5M PRN #25 tab 08/11/15 10/16/21 Rx Insulin Detemir (Levemir) [Levemir] 40 unit SQ HS 01/13/19 10/18/21 History Pioglitazone [Actos] 15 mg PO DAILY 01/13/19 10/16/21 History Dapagliflozin Propanediol [Farxiga] 1 tab PO DAILY 10/16/21 09/05/23 History Gabapentin 300 mg PO BID 10/16/21 10/16/21 History Spironolactone 25 mg PO DAILY 10/16/21 09/05/23 History Unk Daily Vitamin 1 tab PO DAILY 10/16/21 10/16/21 History Unk Tumeric 1 tab PO DAILY 10/16/21 10/16/21 History Acetaminophen [Tylenol Extra 500 mg PO DAILY PRN 09/05/23 09/05/23 History Strength] Multivit-Min/Iron/Folic/Lutein 1 each PO DAILY 09/05/23 09/05/23 History [Centrum Silver Women Tablet] Semaglutide [Ozempic] 2 mg SQ WEEKLY 09/05/23 09/05/23 History Zinc Gluconate [Zinc] 50 mg PO DAILY 09/05/23 09/05/23 History
== END ==
LOC: 3 N SLEEP 10:51
PROVIDERS: ATTEND Internal Medicine
DX: E11.9 Type 2 diabetes mellitus without complications (principal); G47.33 Obstructive sleep apnea (adult) (pediatric); E66.9 Obesity, unspecified; I10 Essential (primary) hypertension; D86.89 Sarcoidosis of other sites; I25.2 Old myocardial infarction; Z68.33 Body mass index [BMI] 33.0-33.9, adult; Z87.891 Personal history of nicotine dependence; Z88.5 Allergy status to narcotic agent; Z88.1 Allergy status to other antibiotic agents; Z88.8 Allergy status to other drugs, medicaments and biological substances; Z88.3 Allergy status to other anti-infective agents
CPT/HCPCS: 99212